=== PATIENT | male | born 2000 | race African-American/Black ===

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

== ENCOUNTER 2025-05-21 17:03 | Emergency (ER) | payer BC, OTHER ==
[~2025-05-21] VITALS: Ht 167.6 cm; Wt 60.9 kg
[2025-05-21] MEDS: IBUPROFEN 600 MG TAB PO ONE (18:33)
[2025-05-21] MEDS: METOCLOPRAMIDE 10 MG TAB PO ONE (18:33)
[2025-05-21 19:07] VITALS: BP 120/77; TEMP 99.4; O2SAT 98
== END 2025-05-21 19:36 | disposition home or self-care (01) ==
LOC: M ED 17:03
DX: J20.6 Acute bronchitis due to rhinovirus (principal); F12.10 Cannabis abuse, uncomplicated; Z91.018 Allergy to other foods